=== PATIENT | male | born 1950 | race Caucasian/White ===

== ENCOUNTER 2020-04-10 10:54 | Emergency (ER) | payer MEDICAID ==
[~2020-04-10] VITALS: Ht 198.1 cm; Wt 96.0 kg
--- NOTE | 2020-04-10 11:03 | NUR ---
PT BIB EMS FOR AFIB AND DIZZINESS. [facility] AT [facility]" AND WHEN HE GOT THERE HE FELT DIZZY AND VOMITTED. 911 WAS CALLED. EMS ARRIVED TO FIND HIM HYPOTENSIVE AND IN AFIB. 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 EMS GLUCOMETE ALSO READ "HIGH". PT HAS HX OF DM AND AFIIB. PT STATES "I TAKE A BLOOD THINNER BUT IM NOT SURE WHICH ONE IT IS". PT RESTING IN GURNEY. EKG COMPLETE. PT CONNECTED TO MONITORING EQUIPMENT.
[2020-04-10] MEDS ORDERED: PROPOFOL 10 MG/ML, 20ML ONE (11:15)
[2020-04-10] MEDS ORDERED: SODIUM CHLORIDE FLUSH 10ML SYR IVF ONE (11:30)
[2020-04-10 11:31] LABS: PH, VENOUS 7.386 pH (7.320-7.420)
[2020-04-10 11:38] LABS: BASOPHILS % (AUTO) 1 % (0-1); EOSINOPHILS % (AUTO) 1 % (1-7); LYMPHOCYTES % (AUTO) 28 % (22-44); MEAN CORPUSCULAR HEMOGLOBIN 32.4 pg (27.5-34.5); MEAN CORPUSCULAR HGB CONC 33.8 g/dL (33.2-36.2); MEAN PLATELET VOLUME 8.4 fL (7.4-10.4); MONOCYTES % (AUTO) 9 % (2-9); NEUTROPHILS % (AUTO) 62 % (42-75); PLATELET COUNT 222 x10^3/uL (130-400); RED BLOOD COUNT 4.19 x10^6/uL (4.38-5.82); RED CELL DISTRIBUTION WIDTH 13.8 % (9.4-14.8)
[2020-04-10 11:43] LABS: MD NO
[2020-04-10 11:44] LABS: ALANINE AMINOTRANSFERASE 33 U/L (12-78); ALBUMIN 3.3 g/dL (3.4-5.0); ANION GAP 8 mmol/L (5-15); CALCIUM 8.9 mg/dL (8.5-10.1); CHLORIDE 101 mmol/L (98-107)
[2020-04-10 11:49] LABS: ALKALINE PHOSPHATASE 74 U/L (45-117); BILIRUBIN,TOTAL 0.8 mg/dL (0.2-1.0); CREATININE 1.49 mg/dL (0.7-1.3); TOTAL PROTEIN 7.1 g/dL (6.4-8.2); TROPONIN I < 0.015 ng/mL (0.000-0.045)
--- NOTE | 2020-04-10 11:49 | NUR ---
PT TO BE CARDIOVERTED. ALL SAFETY MEASURES IN PLACE - SUCTION, AMBU BAG, END TIDAL, CRASH CART, IV ACCESS, MONITORING EQUIPMENT
--- NOTE | 2020-04-10 11:50 | NUR ---
PT CARDIOVERTED WITH 200J ENERGY. PT APPEARS TO BE BACK IN NORMAL RHYTHM. PT TOLERATED PROCEDURE WELL. WILL STAY IN IN ROOM TO CONTINUE TO MONITOR
--- NOTE | 2020-04-10 11:54 | NUR ---
SEE PRINT OFF FOR VITALS
[2020-04-10] MEDS ORDERED: INSULIN REGULAR 100 UNITS/ML, 3ML VIAL SQ-INSULIN ONE ×2 (12:00→14:30)
[2020-04-10] MEDS ORDERED: PROPOFOL 10 MG/ML, 20ML IVPush ONE (12:00)
[2020-04-10 12:03] LABS: ACETONE, SERUM Small (20mg/dL) (Negative)
[2020-04-10] MEDS ORDERED: INSULIN SINGLE DOSE, ER ONE ×2 (12:19→14:32)
--- NOTE | 2020-04-10 12:52 | NUR ---
150MG PROPOFOL WASTED. 200MG RETURNED. ANA RN - WITNESS
--- NOTE | 2020-04-10 14:16 | NUR ---
NOTIFIED OF BLOOD SUGAR.
--- NOTE | 2020-04-10 14:56 | NUR ---
REPORT TO MARTHA DARNELL
--- NOTE | 2020-04-10 16:02 | NUR ---
PATIENT RESTING ON STRETCHER, NAD, REQUESTING SNACK. WILL NOTIFY PROVIDER AND CONTINUE TO MONITOR.
[2020-04-10 18:00] VITALS: BP 138/79
== END 2020-04-10 18:03 | disposition home or self-care (01) ==
LOC: ED 15:44
DX: U07.1 COVID-19 (principal); E10.65 Type 1 diabetes mellitus with hyperglycemia; R07.89 Other chest pain; R00.2 Palpitations; R00.0 Tachycardia, unspecified; I48.91 Unspecified atrial fibrillation; R42 Dizziness and giddiness
CPT/HCPCS: 36415; 71045; 80053; 82010; 82803; 82962; 83880; 84484; 85025; 87635; 92960; 93005; 99285; J1815; J2704

== ENCOUNTER 2020-10-14 12:56 | Emergency (ER) | payer MEDICARE, MEDICAID ==
[~2020-10-14] VITALS: Ht 198.1 cm; Wt 100.0 kg
--- NOTE | 2020-10-14 13:16 | NUR ---
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 pt hasn't taken insulin or cardiac medications for 10 days stating he "didn't feel like it" pt also fell on r. side on tuesday and now has complaints of 10/10 RUQ pain. PT ATTACHED TO MONITORS. VSS. DEL REAL. DR. HARP TO BEDSIDE FOR EVALUATION.
[2020-10-14] MEDS ORDERED: MORPHINE SULFATE 4 MG/ML, 1ML ONE ×2 (13:38→16:24)
[2020-10-14] MEDS: MORPHINE SULFATE 4 MG/ML, 1ML IVPush PRN ×2 (13:42→16:28)
--- NOTE | 2020-10-14 13:42 | NUR ---
PT MEDICATED PER EMAR. VSS. CARROLN.
[2020-10-14 13:59] LABS: ALANINE AMINOTRANSFERASE 19 U/L (12-78); ALBUMIN 2.8 g/dL (3.4-5.0); ANION GAP 9 mmol/L (5-15); CALCIUM 9.1 mg/dL (8.5-10.1); CHLORIDE 106 mmol/L (98-107); CREATININE 1.12 mg/dL (0.7-1.3)
[2020-10-14 14:00] LABS: BASOPHILS % (AUTO) 0 % (0-1); EOSINOPHILS % (AUTO) 0 % (1-7); LYMPHOCYTES % (AUTO) 24 % (22-44); MEAN CORPUSCULAR HEMOGLOBIN 31.3 pg (27.5-34.5); MEAN CORPUSCULAR HGB CONC 34.1 g/dL (33.2-36.2); MONOCYTES % (AUTO) 11 % (2-9); NEUTROPHILS % (AUTO) 65 % (42-75); PLATELET COUNT 392 x10^3/uL (130-400); RED BLOOD COUNT 3.98 x10^6/uL (4.38-5.82); RED CELL DISTRIBUTION WIDTH 13.5 % (9.4-14.8)
[2020-10-14 14:02] LABS: ALKALINE PHOSPHATASE 84 U/L (45-117); BILIRUBIN,TOTAL 1.4 mg/dL (0.2-1.0); TOTAL PROTEIN 7.2 g/dL (6.4-8.2)
--- NOTE | 2020-10-14 14:25 | NUR ---
PT ASLEEP WITH EVEN AND UNLABORED RESPIRATIONS. THIS RN ATTEMPTED TO CONTACT SON WHO IS LISTED PRIMAIRY CONTACT AT PT REQUEST.
[2020-10-14 14:42] LABS: MICROSCOPIC INDICATED
--- NOTE | 2020-10-14 14:42 | NUR ---
THIS RN SPOKE WITH PT'S SON TELLO TO GET STAFF DEVELOPMENT COORDINATOR RN CONTACT INFO. PT IS SEEN BY SHAMAR THOMAS FROM [facility] AT [phone]
--- NOTE | 2020-10-14 15:16 | NUR ---
pt to ct
[2020-10-14] MEDS ORDERED: CEFTRIAXONE 2 GM in DEXTROSE 5% 50 ML IVPB ONE (15:30)
[2020-10-14] MEDS ORDERED: SODIUM CHLORIDE 0.9% 1,000ML IVBOLUS ONE (15:30)
--- NOTE | 2020-10-14 15:35 | NUR ---
BREAK RN: PT RETURN TO ROOM. NS BOLUS AND IV ABX STARTED. NO NEEDS EXPRESSED AT THIS TIME.
--- NOTE | 2020-10-14 16:05 | NUR ---
REPORT TO PRANAY THOMAS
[2020-10-14 16:29] VITALS: BP 151/77
--- NOTE | 2020-10-14 16:29 | NUR ---
PT MEDICATED FOR PAIN PER EMAR. VSS. NADN. D/C AT 1700
--- NOTE | 2020-10-14 17:06 | NUR ---
Son Julian called and updated on d/c. Son states he will supervisor body assembly prescriptions for patient at patient request. pt left via wheelchair via [email or web address] with all belongings after d/c education. pt states he understood education.
== END 2020-10-14 17:10 | disposition home or self-care (01) ==
LOC: ED 15:13
DX: N10 Acute pyelonephritis (principal); R94.31 Abnormal electrocardiogram [ECG] [EKG]; E11.9 Type 2 diabetes mellitus without complications; I48.91 Unspecified atrial fibrillation
CPT/HCPCS: 36415; 74176; 80053; 81001; 85025; 87040; 87077; 87086; 93005; 96365; 96375; 96376; 99285; J0696; J2270; J7030